=== PATIENT | male | born 1945 | race Caucasian/White ===

== ENCOUNTER 2024-03-29 05:12 | Observation (INO) | payer MEDICARE, OTHER ==
[2024-03-29] MEDS: Sodium Chloride 0.9% 1,000 ML IV ONE ×2 (05:29→06:30)
[2024-03-29] MEDS: Ondansetron 4 MG/2 ML SDV IVPUSH ONE (05:39)
[2024-03-29 06:00] LABS: BASOPHILS PERCENT AUTO 1.4 % (0.0-1.0); EOSINOPHILS PERCENT AUTO 2.8 % (1.0-3.0); HEMATOCRIT 36.9 % (40.0-54.0); HEMOGLOBIN 12.8 g/dL (14.0-18.0); LYMPHOCYTES PERCENT AUTO 35.2 % (20.5-50.1); MEAN CORPUSCULAR HEMOGLOBIN 32.2 pg (27.0-34.0); MEAN CORPUSCULAR HGB CONC 34.7 g/dL (33.0-35.0); MEAN CORPUSCULAR VOLUME 92.7 fL (80-100); MONOCYTES PERCENT AUTO 8.5 % (2-8); NEUTROPHILS PERCENT AUTO 52.1 % (42.2-75.2); PLATELET COUNT,PLT 188 10^3/uL (150-450); RED BLOOD CELL COUNT 3.98 10^6/uL (4.6-6.2); WHITE BLOOD CELL COUNT,WBC 4.2 10^3/uL (5.0-10.0)
[2024-03-29 06:34] LABS: ALBUMIN 3.1 g/dL (3.4-5.0); ANION GAP 14.5 mEq/L (7-13); BILIRUBIN TOTAL 1.7 mg/dL (0.2-1.0); CALCIUM 8.5 mg/dL (8.5-10.1); CREATININE 1.07 mg/dL (0.70-1.30); EST CRCL DRUG DOSING (CG) 59.7 mL/min; MAGNESIUM 1.8 mg/dL (1.8-2.4); POTASSIUM,K 3.5 mmol/L (3.5-5.1); PROTEIN TOTAL,TP 5.7 g/dL (6.4-8.2); TSH ULTRASENSITIVE 4.64 uIU/mL (0.36-3.74)
[2024-03-29 06:35] LABS: A/G RATIO 1.19
[2024-03-29 06:36] LABS: LACTIC ACID 2.7 mmol/L (0.4-2.0)
[2024-03-29 08:02] LABS: APPEARANCE,URINE CLEAR (CLEAR); BILIRUBIN,URINE NEGATIVE (NEGATIVE); COLOR,URINE YELLOW (YELLOW); GLUCOSE,URINE NEGATIVE (NEGATIVE); KETONES,URINE 40 (NEGATIVE); LEUKOCYTE ESTERASE,URINE NEGATIVE (NEGATIVE); NITRITE,URINE NEGATIVE (NEGATIVE); OCCULT BLOOD,URINE NEGATIVE (NEGATIVE); PH,URINE 7.5 (5.0-9.0); PROTEIN,URINE NEGATIVE (NEGATIVE); UROBILINOGEN,URINE 0.2 mg/dL (0.2-1.0)
[2024-03-29] MEDS: Bacitracin Oint 1 GM U/D Packet TOP ONE (08:45)
[2024-03-29] MEDS ORDERED: Naloxone 2 MG/2 ML Syringe IVPUSH PRN (11:39)
[2024-03-29] MEDS ORDERED: Polyethylene Glycol 3350 Powder 17 GM Packet PO PRN (11:39)
[2024-03-29] MEDS ORDERED: Ondansetron 4 MG/2 ML SDV IVPUSH PRN (11:39)
[2024-03-29] MEDS ORDERED: HYDROmorphone 0.5 MG/0.5 ML Syringe IVPUSH PRN (11:39)
[2024-03-29] MEDS ORDERED: Sennosides/Docusate Sodium 50-8.6 MG Tab PO PRN (11:39)
[2024-03-29] MEDS ORDERED: Magnesium Hydroxide 400 MG/5 ML Susp 30 ML Cup PO PRN (11:39)
[2024-03-29] MEDS ORDERED: Acetaminophen 325 MG Tab PO PRN (11:39)
[2024-03-29] MEDS ORDERED: Melatonin 3 MG Tab PO PRN (11:39)
[2024-03-29] MEDS ORDERED: Promethazine 25 MG/ML SDV IM PRN (11:39)
[2024-03-29] MEDS ORDERED: Albuterol/Ipratropium 3.0-0.5 MG/3 ML Neb Soln NEB PRN (11:39)
[2024-03-30 08:08] VITALS: BP 113/64; PULSE 70
[2024-03-30] MEDS: Bacitracin/Neomycin/Polymyxin B Oint 28.4 GM Tube TOP SCH (10:44)
[2024-03-30] MEDS: Montelukast 10 MG Tab PO SCH (11:33)
[2024-03-30] MEDS: Aspirin 81 MG Tab.Chew PO SCH (11:34)
[2024-03-30] MEDS: Rosuvastatin 10 MG Tab PO SCH (11:34)
== END 2024-03-30 11:27 | disposition home or self-care (01) ==
LOC: DL.ED 05:12 → DL.MS 09:22
PROVIDERS: ADMIT Internal Medicine; ATTEND Internal Medicine
DX: R55 Syncope and collapse (principal); S41.111A Laceration without foreign body of right upper arm, initial encounter; E78.5 Hyperlipidemia, unspecified; Z79.899 Other long term (current) drug therapy; W01.0XXA Fall on same level from slipping, tripping and stumbling without subsequent striking against object, initial encounter
CPT/HCPCS: 36415; 70450; 71045; 80053; 81003; 82947; 83605; 83690; 83735; 84443; 84481; 84484; 85025; 93005; 93880; A9270-GY; G0378; J2405; J7030